=== PATIENT | male | born 1975 | race Caucasian/White ===

== ENCOUNTER 2019-02-25 07:15 | Emergency (ER) | payer BC, OTHER ==
[~2019-02-25] VITALS: Ht 172.7 cm; Wt 90.7 kg
[~2019-02-25 07:15] MED LIST: KEFLEX500 MG PO; NORCO 5-325 TA1 EACH PO
== END 2019-02-25 07:59 | disposition home or self-care (01) ==
LOC: ER 07:15
DX: S90.851A Superficial foreign body, right foot, initial encounter (principal); W22.8XXA Striking against or struck by other objects, initial encounter; Y93.01 Activity, walking, marching and hiking; Y92.89 Other specified places as the place of occurrence of the external cause; Y99.8 Other external cause status

== ENCOUNTER 2019-04-15 09:56 | Emergency (ER) | payer BC, OTHER ==
[~2019-04-15] VITALS: Ht 172.7 cm; Wt 90.7 kg
[2019-04-15] MEDS ORDERED: MEDROLDOSEPACK PO (12:26)
[2019-04-15] MEDS ORDERED: NORCO 5-325 TA1 EAC1 PO (12:26)
[2019-04-15] MEDS ORDERED: CYCLOBENZAPRINE5 MG PO (12:26)
[2019-04-15 12:37] VITALS: BP 165/99
== END 2019-04-15 12:38 | disposition home or self-care (01) ==
LOC: ER 09:56
DX: M54.6 Pain in thoracic spine (principal); I10 Essential (primary) hypertension; F10.10 Alcohol abuse, uncomplicated